=== PATIENT | female | born 1950 | race African-American/Black ===

== ENCOUNTER → 2023-05-09 13:38 | Outpatient (REF) | payer MEDICARE, SELFPAY | LOC: HWWDC 13:38 | PROVIDERS: ATTENDING PHYSICIAN Nurse Practitioner Adult Health; FAMILY PHYSICIAN Family Medicine | DX: Z12.31 Encounter for screening mammogram for malignant neoplasm of breast (principal) | CPT/HCPCS: 77063; 77067 ==

== ENCOUNTER → 2024-01-01 18:42 | Outpatient (REF) | payer MEDICARE, SELFPAY | LOC: MRI 18:42 | PROVIDERS: ATTENDING PHYSICIAN Nurse Practitioner Family; FAMILY PHYSICIAN Family Medicine | DX: R10.11 Right upper quadrant pain (principal) | CPT/HCPCS: 74183; A9575 ==

== ENCOUNTER 2024-01-18 16:19 | Observation (INO) | payer MEDICARE, SELFPAY ==
[2024-01-18 10:37] VITALS: BP 155/106
--- NOTE | 2024-01-18 10:37 | ED.GENMED ---
ED Provider Triage
<Ara You PA-C - Last Filed: 01/18/24 10:39>
-
Patient seen by provider in Triage?: Seen in Triage
Attestation: A medical screening examination has been initiated by a qualified medical provider. Based on the assessment performed at this time, it has been determined that an emergent medical condition may exist and the patient has been informed
that further medical evaluation and possible additional diagnostic testing may be needed.
HPI: 73yoF here with chest heaviness, SOB, and lightheadedness. Started while driving <1 hour ago.
GENERAL: Alert , in no apparent distress
EYE: No visual abnormalities.
NECK: Trachea midline
ENT: No visible abnormalities.
LUNGS: No acute respiratory distress
NEUROLOGICAL: Alert and oriented
SKIN: Skin intact. No visible changes.
MUSCULOSKELETAL: Moving extremities normally
PSYCH: Normal and appropriate interaction.
This is a medical evaluation conducted in person to initiate diagnostic evaluation and provide initial therapeutics. Please see further documentation by the treating clinician.
Cardiac labs, EKG, and CXR ordered.
History of Present Illness
<Ara You PA-C - Last Filed: 01/18/24 10:39>
General
Chief Complaint: Chest Pain
Time Seen by Provider: 01/18/24 12:43
<Ministerio Méndez MD - Last Filed: 01/18/24 15:38>
History of Present Illness
History of Present Illness:
Patient with an episode of chest pain while driving. Prolonged. Still has mild chest discomfort but improved. Radiate up to the left neck. Associated with near syncope
Past History
<Ara You PA-C - Last Filed: 01/18/24 10:39>
Past History
ED Past Medical History: Arrthythmia (SVT), HTN, Other (PE) and Other (Ulcers, Depression, anxiety, Gastritis)
ED Past Surgical History: Appendectomy, Cardiac (Cardiac ablation), Cholecystectomy, Tonsilectomy and Other (Green field filter, ovarian cyst removed)
Social History
Tobacco: Non-smoker
Alcohol: None
Drug: None
Personal:
Living: with family
Employment: Disabled
Family History
Family History: Hypertension; Negative CAD
Phy Exam
<Ministerio Méndez MD - Last Filed: 01/18/24 15:38>
Physical Exam
Physical Exam:
GENERAL: Alert and oriented in no apparent distress
EYE: Orbits normal.
NECK: Supple, no significant adenopathy.
ENT: Pharynx without erythema
CARDIAC: Regular rate and rhythm without any obvious murmurs.
LUNGS: Clear breath sounds,normal
ABDOMEN: Soft, without focal tenderness or distention
NEUROLOGICAL: Alert and oriented , grossly non-focal
SKIN: Warm and dry, no rash or lesion, no discoloration, skin intact.
MUSCULOSKELETAL: No edema,no deformity.Good color
PSYCH: Normal and appropriate interaction.
Scores
<Ministerio Méndez MD - Last Filed: 01/18/24 15:38>
Heart Score for Chest Pain Patients
STEMI patient?: No
History: Moderately Suspicious
ECG: Normal
Age: >/= 65 years
Risk Factors: 1 or 2 Risk Factors
Troponin: </= Normal Limit
Heart Score for Chest Pain Patients: 4
Heart Score Risk: 20.3% MACE over next 6 weeks
Course
<Ara You PA-C - Last Filed: 01/18/24 10:39>
Orders/Labs/Results
Orders:
Orders
01/18/24 10:22
EKG [Electrocardiogram (*1)] Urgent
Reason for Study: Chest Pain
01/18/24 10:23
EKG- Treatment ONCE
01/18/24 10:39
CR Chest - 2 Views Urgent
Comment:
Reason For Exam: SOB
01/18/24 10:52
Complete Blood Count/With Diff Urgent
Comprehensive Metabolic Panel Urgent
Glycohemoglobin (HgbA1c) Urgent
Troponin I Urgent
01/18/24 12:04
Add On- LAB Stat
Comments:: Please add A1C to AM labs. Thank you
Tests Added?: A1C
01/18/24 13:05
D-Dimer Urgent
Abnormal Lab Results
01/18/24
10:52
WBC 4.7 L 10^3/uL
(4.8-10.8)
MCH 32.0 H pg
(27.0-31.0)
MPV 10.7 H fL
(7.4-10.4)
Absolute Lymphs (auto) 1.1 L 10^3/uL
(1.2-3.4)
Carbon Dioxide 31 H mmol/L
(22-30)
Glucose 206 H mg/dl
(70-99)
Hemoglobin A1c 6.5 H %
(4.0-5.6)
01/18/24 10:52
01/18/24 10:52
Vital Signs
Initial and Last Documented VS:
Initial Vital Signs
Temp Pulse Resp BP Pulse Ox
98.2 F 80 18 155/106 100
01/18/24 10:37 01/18/24 10:37 01/18/24 10:37 01/18/24 10:37 01/18/24 10:37
Last Documented Vital Signs
Temp Pulse Resp BP Pulse Ox
98.2 F 64 9 177/82 94
01/18/24 10:37 01/18/24 13:00 01/18/24 13:00 01/18/24 12:58 01/18/24 13:00
<Ministerio Méndez MD - Last Filed: 01/18/24 15:38>
Orders/Labs/Results
Orders:
Orders
01/18/24 10:22
EKG [Electrocardiogram (*1)] Urgent
Reason for Study: Chest Pain
01/18/24 10:23
EKG- Treatment ONCE
01/18/24 10:39
CR Chest - 2 Views Urgent
Comment:
Reason For Exam: SOB
01/18/24 10:52
Complete Blood Count/With Diff Urgent
Comprehensive Metabolic Panel Urgent
Glycohemoglobin (HgbA1c) Urgent
Troponin I Urgent
01/18/24 12:04
Add On- LAB Stat
Comments:: Please add A1C to AM labs. Thank you
Tests Added?: A1C
01/18/24 13:05
D-Dimer Urgent
Abnormal Lab Results
01/18/24
10:52
WBC 4.7 L 10^3/uL
(4.8-10.8)
MCH 32.0 H pg
(27.0-31.0)
MPV 10.7 H fL
(7.4-10.4)
Absolute Lymphs (auto) 1.1 L 10^3/uL
(1.2-3.4)
Carbon Dioxide 31 H mmol/L
(22-30)
Glucose 206 H mg/dl
(70-99)
Hemoglobin A1c 6.5 H %
(4.0-5.6)
01/18/24 10:52
01/18/24 10:52
Vital Signs
Initial and Last Documented VS:
Initial Vital Signs
Temp Pulse Resp BP Pulse Ox
98.2 F 80 18 155/106 100
01/18/24 10:37 01/18/24 10:37 01/18/24 10:37 01/18/24 10:37 01/18/24 10:37
Last Documented Vital Signs
Temp Pulse Resp BP Pulse Ox
98.2 F 64 9 177/82 94
01/18/24 10:37 01/18/24 13:00 01/18/24 13:00 01/18/24 12:58 01/18/24 13:00
<Ministerio Méndez MD - Last Filed: 01/18/24 15:38>
MDM/Problems Addressed
Differential Diagnosis Includes:
Left-sided chest pressure rating to the neck. No precipitating event. Similar episode 2 weeks ago. Moderate risk factors. Associated with near syncope. Referred to cardiology who recommended admission
<Ministerio Méndez MD - Last Filed: 01/18/24 15:38>
*Radiology
Radiology exam reviewed: radiology read reviewed (Negative)
*Pulse Oximetry
Patient hypoxic: no
*EKG
Interpreted by ED Provider?: Yes
Interpretation: normal
Heart Rate: 78
Rate: normal
Rhythm: sinus
Hendrum: normal axis
Interval: normal interval
QRS Pattern: normal QRS
Ischemia: no ischemia
*Critical Care Note
Total Time (30-74mins, 75-104mins- exclusive of procedures): Not Applicable
<Ministerio Méndez MD - Last Filed: 01/18/24 15:38>
Update Note
Update Note:
Seen by cardiology who recommends admission
ED Attending Note
<Ara You PA-C - Last Filed: 01/18/24 10:39>
-
Portions of this chart may have been created with voice recognition software.� Occasional wrong word or��sound alike� substitutions may have occurred due to the inherent limitations of voice recognition software.
Discharge Plan
Departure
Patient Disposition: Admit
Date of Disposition: 01/18/24
Time of Disposition: 15:37
Presentation/result/management discussed w/ accepting /DO: glo
Discharge Problem:
Chest pain near syncope
Prescriptions:
No Action
sodium chloride 0.65 % Aerosol,[place]
2 spray INTRANASAL BIDPRN PRN (Reason: allergies) Qty: 0
Flintstones Complete Tablet,Chewable
2 tab PO DAILY Qty: 0
Patient Comments:
chewable multivitamin
hydralazine 25 mg Tablet
25 mg PO QID
clopidogrel [Plavix] 75 mg Tablet
75 mg PO DAILY@1100
alum-mag hydroxide-simeth 200-200-20 mg/5 mL Suspension
5 ml PO DAILYPRN PRN (Reason: gas pains)
rosuvastatin [Crestor] 5 mg Tablet
5 mg PO MOWEFR
carvedilol 6.25 MG tablet
12.5 mg PO BID
Referrals:
Chrystal Gagnon MD [Family Provider] -
Interventions
Interventions:
*Risk Screen - Suicide Last Done: 01/18/24 10:37
*General Assessment Last Done: 01/18/24 10:37
*Neglect/Abuse Screening Last Done: 01/18/24 10:37
ED- Fall Risk Assessment Last Done: 01/18/24 12:51
*ED COVID-19 Vaccine History Last Done: 01/18/24 12:51
ED- Cardiac Assessment Last Done: 01/18/24 12:51
Discharge Date and Time
Print Language: BRITISH
[2024-01-18 11:07] LABS: % Basophils 0.9 % (0-2); % Eosinophils 5.1 % (0-6); % Immature Granulocytes 0.2 % (0-0.5); % Monocytes 7.7 % (1.7-9.3); % Neutrophils 62.1 % (42.2-75.2); Absolute Eosinophils 0.2 10^3/uL (0-0.7); Absolute Lymphocytes 1.1 10^3/uL (1.2-3.4); Absolute Monocytes 0.4 10^3/uL (0.1-0.6); Absolute Neutrophils 2.9 10^3/uL (1.4-6.5); Hematocrit 40.3 % (37.0-47.0); Hemoglobin 13.9 g/dL (12.0-16.0); Mean Corp Hgb Conc. 34.5 g/dL (33.0-37.0); Mean Corpuscular Volume 92.9 fL (81.0-99.0); Mean Platelet Volume 10.7 fL (7.4-10.4); Nucleated Red Blood Cells % 0 %; Platelet Count 178 10^3/uL (130-400); Red Blood Cell Count 4.34 10^6/uL (4.20-5.40); Red Cell Dist. Width 12.5 % (11.5-14.5); White Blood Cell Count 4.7 10^3/uL (4.8-10.8)
[2024-01-18 11:22] LABS: ALT (SGPT) 22 U/L (0-35); AST (SGOT) 26 U/L (14-36); Albumin 4.6 g/dl (3.5-5.0); Alkaline Phosphatase 47 U/L (38-126); Blood Urea Nitrogen 16 mg/dl (7-17); Calcium 9.7 mg/dl (8.4-10.2); Carbon Dioxide 31 mmol/L (22-30); Chloride 98 mmol/L (98-107); Glucose 206 mg/dl (70-99); Potassium 3.7 mmol/L (3.5-5.1); Sodium 138 mmol/L (135-145); Total Bilirubin 0.8 mg/dl (0.2-1.3); eGFR > 60.00
[2024-01-18 11:30] LABS: Troponin I < 0.012 ng/ml
[2024-01-18 12:58] VITALS: BP 177/82
[2024-01-18 13:00] VITALS: BP 188/84
[2024-01-18 13:01] VITALS: BMI 29.8
[2024-01-18 13:12] LABS: Glycohemoglobin (HgbA1c) 6.5 % (4.0-5.6)
--- NOTE | 2024-01-18 13:14 | CON.CAR ---
Addendum entered and electronically signed by Rhett Aguillon MD 01/18/24 15:49:
I saw and examined the patient.
The CONSTRUCTION EQUIPMENT MECH[employer]IC's note was reviewed and I agree with the note.
73-year-old patient of Dr. Sheth with a history of SVT ablation 2003, labile hypertension, remote history of PE, IVC filter, diabetes hypercholesterolemia, anxiety/depression, multiple medication intolerances/allergies and fibromyalgia who presents
with chest pressure. Patient was in her usual state of health and randomly developed left sided chest pressure while seated and it was severe in intensity for about a minute and then lessened she had faint residual chest sensation so she came to
the ER. During the intense portion of her symptoms she felt lightheaded currently she has a faint residual chest sensation she also feels like the left side of her neck is sore like she slept the wrong way and has some soreness with palpation.
Patient states that she had some similar chest pressure which was not quite as intense about a week ago she was standing in her kitchen and she had the chest pressure and also felt a little lightheaded she was able to remain standing and the
symptoms. She belched and the symptoms seem to resolve. Duration was 1 minute. Between the episode she has felt fine she does her usual exercises with small weights at home and she walks in her development with no symptoms of chest discomfort or
shortness of breath she states with the first episode of chest pressure she belched. . Last stress echo 04/14/2022 without ischemia there was note made to the fact that she had back pain after having echo contrast and the recommendation was for her
not to receive echo contrast. Patient's also had previous chest CTs to rule out PE in 2019, 2020, 2021 and 2022. D-dimer today was negative. Troponin negative.Chest x-ray with no acute abnormality. ECG is without ischemic changes. Exact cause
of symptoms is unclear. Patient does have some risk factors for coronary artery disease would also consider noncardiac causes. Considering patient's risk factors continued symptoms as well as her level anxiety would admit for further observation
and proceed as follows
-Repeat troponin now and follow serial troponins
-Aspirin. Note patient states she has had aspirin in the past because she tends to have GI issues the decision was made to not take the aspirin long-term. We did discuss short-term use as we proceed with her evaluation
-If troponins remain unremarkable then would proceed with exercise treadmill nuclear perfusion stress test in a.m.
-Treatment for GERD. Limited due to reported intolerances to PPI and Pepcid. Defer to primary team. Note patient tolerates Mylanta. Unclear if she has been on Carafate before
-Echocardiogram
-Lightheadedness. She reported some symptoms of lightheadedness with her symptoms exact cause unclear. Prior history of SVT ablation no arrhythmias while on telemetry so far. Will continue to monitor on telemetry if patient continues to have
intermittent symptoms could consider additional outpatient cardiac monitoring
-Labile hypertension blood pressure is elevated in ER. Patient is also anxious which is may contribute. Would have patient take her usual medications and reassess blood pressure.
-Diabetes -recently diagnosed. Management as directed by primary team and PCP
Original Note:
Consultation
Consultation Request
Date/Time Consultation Requested: 01/18/24 1308
Date/Time Consultation Performed: 01/18/24 1320
Requesting Provider: Dr. Méndez
Performing Provider: Ana PUENTE for Dr. Aguillon
Reason for Consultation: chest discomfort, near syncope
Medical History
-
Chief Complaint: chest discomfort, near syncope
History of Present Illness:
73 y/o female with history of SVT s/p ablation 2003, labile hypertension, hx remote PE with IVC filter, DM2, dyslipidemia, anxiety/depression, fibromyalgia, and Grave's disease who is here for evaluation of chest discomfort with near syncope. It
started around 10 AM while she was driving and felt like a left-sided chest pressure. She thought she might pass out, but didn't. The most intense part lasted about 1 minute, but she continues to have mild symptoms even now of chest discomfort. She
also reports left-sided neck pain that feels more like a pinch. ER eval has been unrevealing.
Past Medical History
Past Medical History: Arrhythmias, HTN, Hypercholesterolemia, Hyperthyroidism (graves disease), NIDDM, Psychiatric (anxiety, depression) and Other (grave's disease , as above)
Social History
Tobacco: Non-Smoker
Family History
Family History: Other (mom had CHF)
Allergies / Home Medications
Allergy/AdvReac Type Severity Reaction Status Date / Time
amitriptyline Allergy rapid Verified 09/20/22 09:48
heart rate
amlodipine [From Norvasc] Allergy swelling Verified 09/20/22 09:48
hands/feet,
confusion
amlodipine besylate Allergy swelling Verified 09/20/22 09:48
[From Norvasc] of
hands&feet,
mental
confusion
atenolol Allergy depression, Verified 09/20/22 09:48
muscle
pain in
rib area
bupropion HCl Allergy rash, Verified 09/20/22 09:48
[From Wellbutrin] agitation
buspirone HCl [From BuSpar] Allergy Hives Verified 09/20/22 09:48
candesartan cilexetil Allergy weakness, Verified 09/20/22 09:48
[From Atacand] difficulty
swallowing,
sore throat
cefaclor [From Ceclor] Allergy Rash Verified 09/20/22 09:48
cefprozil [From Cefzil] Allergy itchy rash Verified 09/20/22 09:48
cefuroxime Allergy itchy rash Verified 09/20/22 09:48
cefuroxime axetil Allergy itchy rash Verified 09/20/22 09:48
[From Ceftin]
cephalexin Allergy itchy rash Verified 09/20/22 09:48
cephalexin monohydrate Allergy itchy rash Verified 09/20/22 09:48
[From Keflex]
Cephalosporins Allergy itchy rash Verified 09/20/22 09:48
chlorpromazine Allergy Unknown Verified 09/20/22 09:48
citalopram [From Celexa] Allergy gi upset, Verified 09/20/22 09:48
coughing,
spasms,
burning
chest
citalopram hydrobromide Allergy GI upset Verified 09/20/22 09:48
[From Celexa] (vomiting)
clarithromycin Allergy Hives Verified 09/20/22 09:48
clindamycin Allergy Hives Verified 09/20/22 09:48
clonazepam Allergy extreme Verified 09/20/22 09:48
jitters,
hyperactivity
clonidine Allergy severe Verified 09/20/22 09:48
musc pain
& weakness
diltiazem Allergy difficulty Verified 09/20/22 09:48
swallowing,
irregular
heartbeat
doxazosin [From Cardura] Allergy Patient is Verified 09/20/22 09:48
presently
taking
eplerenone [From INSPRA] Allergy severe Verified 09/20/22 09:48
pain under
left
shoulder
blade,
chest pain
erythromycin base Allergy severe Verified 09/20/22 09:48
stomach
cramps/diarrhea
escitalopram oxalate Allergy Vomiting Verified 09/20/22 09:48
[From Lexapro]
esomeprazole [From Nexium] Allergy flu like Verified 09/20/22 09:48
symptoms
esomeprazole magnesium Allergy fever, Verified 09/20/22 09:48
[From Nexium] flu-like
Sx, severe
abd+musc
pain,diarrhea
estrogens, conjugated Allergy Unknown Verified 09/20/22 09:48
famotidine [From Pepcid] Allergy Patient Verified 09/20/22 09:48
states has
taken now
without a
problem
Heparin Analogues Allergy 'TRUE Verified 09/20/22 09:48
ALLERGY'leathery-watery
blisters,itchy
rash,swelling
hydralazine Allergy PATIENT IS Verified 09/20/22 09:48
PRESENTLY
TAKING
THIS
MEDICINE
irbesartan [From Avapro] Allergy extreme Verified 09/20/22 09:48
muscle
pain &
spasms
lansoprazole Allergy Unknown Verified 09/20/22 09:48
levofloxacin Allergy Unknown Verified 09/20/22 09:48
lidocaine Allergy 'LONG TIME Verified 09/20/22 09:48
AGO'
lisinopril Allergy rash, sore Verified 09/20/22 09:48
throat,
cough,
weakness
methyldopa Allergy tingling, Verified 09/20/22 09:48
couldn't
swallow,
lateral
pain,
unable
togetbreath
mirtazapine Allergy fever,flu-like Verified 09/20/22 09:48
symptoms
nickel [Nickel] Allergy metal Verified 09/20/22 09:48
sensitivity,
itching,
loss of
pigment
nitrofurantoin Allergy Hives Verified 09/20/22 09:48
macrocrystalline
[From Macrobid]
nortriptyline [Nortriptyline] Allergy rapid Verified 09/20/22 09:48
heart rate
olanzapine Allergy Unknown Verified 09/20/22 09:48
olmesartan medoxomil Allergy hives, rash Verified 09/20/22 09:48
[From Benicar]
pantoprazole sodium Allergy fever, Verified 09/20/22 09:48
[From Protonix] flu-like
Sx, severe
abd+musc
pain,diarrhea
Penicillins Allergy 'SEVERE,' Verified 09/20/22 09:48
red itchy
rash,
difficulty
swallowing
perflutren [From Definity] Allergy Unknown Verified 09/20/22 09:48
prednisone Allergy extreme Verified 09/20/22 09:48
nervousness
& anxiety
propoxyphene HCl Allergy difficulty Verified 09/20/22 09:48
[From Darvon] swallowing
Quinolones Allergy Unknown Verified 09/20/22 09:48
sertraline Allergy GI upset, Verified 09/20/22 09:48
vomiting
sertraline HCl [From Zoloft] Allergy Hives Verified 09/20/22 09:48
spironolactone Allergy muscle Verified 09/20/22 09:48
pain +
spasms
(rib +
back area)
Sulfa (Sulfonamide Allergy 'SEVERE,' Verified 09/20/22 09:48
Antibiotics) red itchy
rash,
difficulty
swallowing
sulfamethoxazole Allergy 'SEVERE,' Verified 09/20/22 09:48
[From Bactrim] red itchy
rash,
difficulty
swallowing
sulfasalazine Allergy 'SEVERE,' Verified 09/20/22 09:48
red itchy
rash,
difficulty
swallowing
sulfisoxazole Allergy itching, Verified 09/20/22 09:48
[From Gantrisin] weakness,
depression
sulfisoxazole acetyl Allergy itching, Verified 09/20/22 09:48
[From Gantrisin] weakness,
depression
trazodone Allergy chest pain Verified 09/20/22 09:48
trimethoprim [From Bactrim] Allergy 'SEVERE,' Verified 09/20/22 09:48
red itchy
rash,
difficulty
swallowing
valsartan [From Diovan] Allergy weakness, Verified 09/20/22 09:48
severe
headache
w/
dizziness
venlafaxine HCl Allergy itching/pal Verified 09/20/22 09:48
[From Effexor] patations
verapamil [Verapamil] Allergy Shortness Verified 09/20/22 09:48
of Breath
warfarin sodium Allergy 'TRUE Verified 09/20/22 09:48
[From Coumadin] ALLERGY'leathery-watery
blisters,itchy
rash,swelling
zolpidem tartrate Allergy depression Verified 09/20/22 09:48
[From Ambien] w/ vivid
dreams &
suicidal
thoughts
�Medication �Instructions �Recorded �Confirmed �Type
pediatric multivitamin no.76 2 tab PO DAILY Supplement ##0 12/17/20 09/20/22 History
(Flintstones Complete chewable
tablet)
sodium chloride 0.65 % nasal spray 2 spray intranasal BIDPRN PRN 12/17/20 09/20/22 History
aerosol allergies ##0
aluminum-mag hydroxide-simethicone 5 ml PO DAILYPRN PRN gas pains 09/20/22 09/20/22 History
200 mg-200 mg-20 mg/5 mL oral susp
carvedilol 6.25 mg tablet 12.5 mg PO BID Blood Pressure 09/20/22 09/20/22 History
clopidogrel 75 mg tablet (Plavix) 75 mg PO DAILY@1100 Blood Clot 09/20/22 09/20/22 History
Prevention/Tx
hydralazine 25 mg tablet 25 mg PO QID Blood Pressure 09/20/22 09/20/22 History
rosuvastatin 5 mg tablet (Crestor) 5 mg PO MOWEFR High Cholesterol 09/20/22 09/20/22 History
Review of Systems
-
History Source: Patient
All other systems: Negative unless noted
Cardiac: Chest Pain
Neurological: Dizzy
Physical Exam
Vital Signs
Temp Pulse Resp BP Pulse Ox
98.2 F 64 9 177/82 94
01/18/24 10:37 01/18/24 13:00 01/18/24 13:00 01/18/24 12:58 01/18/24 13:00
Lab Results
01/18/24 10:52
01/18/24 10:52
Troponin I < 0.012 ng/ml 01/18/24 10:52
Physical Exam
General: Well Developed, Well Nourished and No Apparent Distress
HEENT: Normocephalic and Anicteric
Respiratory: Clear and Non Labored Respirations
Cardiac: Regular Rhythm
Skin: Warm and Dry
Neuro: AO x 3
Psych: Calm
Impression / Plan
-
Chest discomfort, near syncope:
-etiology unclear
-first trop and EKG are normal- continue to trend
-can have exercise nuclear stress test, echo
-follow telemetry
-unclear if neck pain is related- w/u per primary team if indicated
DM2:
-recent diagnosis
-she is working on lifestyle modifications
Labile HTN:
-follows on this with nephrology
-continue coreg and hydralazine and monitor
SVT:
-stable s/p ablation
Data Reviewed
-
EKG: Tracing Personally Visualized and interpreted (NSR 78, LA enlargement)
Medical Tests (Nuc Med, Echo etc): Report Reviewed by me (stress echo 04/14/22: low risk at 7 METS)
Labs: Labs Reviewed by me
[2024-01-18 13:29] LABS: D-Dimer 0.34 ug/mlFEU (0.00-0.50)
[2024-01-18] MEDS: ASPIRIN 325 MG PO (16:02)
--- NOTE | 2024-01-18 16:09 | HPS.HSE ---
Family Physician
-
Family Physician: Chrsytal Gagnon
Chief Complaint
-
chest pressure
History of Present Illness
73-year-old female who is presenting from home with complaints of chest pain. Patient says she was driving to her diabetes education class when during driving she developed left-sided chest pain/pressure. Said the pressure was a scale of 1-10 was
approximately 10. Also complained of mild lightheadedness/dizziness. Also states of left neck pain. Patient is the pain continued to worsen. Patient felt lightheaded but did not have episode of loss of consciousness. Patient was contemplating
to get admitted to hospital or not. Patient finally decided come into the ER. Patient history of prior episode of chest pressure. States she has history of whitecoat hypertension and blood pressure usually elevated during hospitalization. States
she had recent follow-up with her primary doctor for blood pressure was 130/64. Patient denies any lower extremity edema. Denies any orthopnea or PND. Does states of left-sided substernal chest discomfort. Radiation to her neck at times. States
she was evaluated for her cervical pain and has undergone MRI at [facility] where she was found to have spinal stenosis with radiculopathy/neuropathy. States she also underwent outpatient EMG study for bilateral upper extremity was found to
be normal.
Medical History
Past Medical History
Past Medical History: Reports Other
Additional Past Medical History:
Primary HTN
Whitecoat syndrome without diagnosis of hypertension
Anxiety
questionable PE s/p IVC filter 2003,
SVT s/p ablation
diabetes mellitus
Pancreatic cyst
Past Surgical History: Reports Appendectomy, Cholecystectomy, Gynocological (ovarian cyst removal ), Tonsilectomy and Other (Left forearm ganglion cyst removal, IVC filter placement per pt)
Social History
Tobacco: Non-smoker
Alcohol: None
Living: With Family
Family History
Family History: Not pertinent
Allergies / Home Medications
Allergies reflects when Allergies were last updated in [facility].
Home Medications with original date entered in [facility]
Allergy/Medication List:
Allergies
Allergy/AdvReac Type Severity Reaction Status Date / Time
amitriptyline Allergy rapid Verified 09/20/22 09:48
heart rate
amlodipine [From Norvasc] Allergy swelling Verified 09/20/22 09:48
hands/feet,
confusion
amlodipine besylate Allergy swelling Verified 09/20/22 09:48
[From Norvasc] of
hands&feet,
mental
confusion
atenolol Allergy depression, Verified 09/20/22 09:48
muscle
pain in
rib area
bupropion HCl Allergy rash, Verified 09/20/22 09:48
[From Wellbutrin] agitation
buspirone HCl [From BuSpar] Allergy Hives Verified 09/20/22 09:48
candesartan cilexetil Allergy weakness, Verified 09/20/22 09:48
[From Atacand] difficulty
swallowing,
sore throat
cefaclor [From Ceclor] Allergy Rash Verified 09/20/22 09:48
cefprozil [From Cefzil] Allergy itchy rash Verified 09/20/22 09:48
cefuroxime Allergy itchy rash Verified 09/20/22 09:48
cefuroxime axetil Allergy itchy rash Verified 09/20/22 09:48
[From Ceftin]
cephalexin Allergy itchy rash Verified 09/20/22 09:48
cephalexin monohydrate Allergy itchy rash Verified 09/20/22 09:48
[From Keflex]
Cephalosporins Allergy itchy rash Verified 09/20/22 09:48
chlorpromazine Allergy Unknown Verified 09/20/22 09:48
citalopram [From Celexa] Allergy gi upset, Verified 09/20/22 09:48
coughing,
spasms,
burning
chest
citalopram hydrobromide Allergy GI upset Verified 09/20/22 09:48
[From Celexa] (vomiting)
clarithromycin Allergy Hives Verified 09/20/22 09:48
clindamycin Allergy Hives Verified 09/20/22 09:48
clonazepam Allergy extreme Verified 09/20/22 09:48
jitters,
hyperactivity
clonidine Allergy severe Verified 09/20/22 09:48
musc pain
& weakness
diltiazem Allergy difficulty Verified 09/20/22 09:48
swallowing,
irregular
heartbeat
doxazosin [From Cardura] Allergy Patient is Verified 09/20/22 09:48
presently
taking
eplerenone [From INSPRA] Allergy severe Verified 09/20/22 09:48
pain under
left
shoulder
blade,
chest pain
erythromycin base Allergy severe Verified 09/20/22 09:48
stomach
cramps/diarrhea
escitalopram oxalate Allergy Vomiting Verified 09/20/22 09:48
[From Lexapro]
esomeprazole [From Nexium] Allergy flu like Verified 09/20/22 09:48
symptoms
esomeprazole magnesium Allergy fever, Verified 09/20/22 09:48
[From Nexium] flu-like
Sx, severe
abd+musc
pain,diarrhea
estrogens, conjugated Allergy Unknown Verified 09/20/22 09:48
famotidine [From Pepcid] Allergy Patient Verified 09/20/22 09:48
states has
taken now
without a
problem
Heparin Analogues Allergy 'TRUE Verified 09/20/22 09:48
ALLERGY'leathery-watery
blisters,itchy
rash,swelling
hydralazine Allergy PATIENT IS Verified 09/20/22 09:48
PRESENTLY
TAKING
THIS
MEDICINE
irbesartan [From Avapro] Allergy extreme Verified 09/20/22 09:48
muscle
pain &
spasms
lansoprazole Allergy Unknown Verified 09/20/22 09:48
levofloxacin Allergy Unknown Verified 09/20/22 09:48
lidocaine Allergy 'LONG TIME Verified 09/20/22 09:48
AGO'
lisinopril Allergy rash, sore Verified 09/20/22 09:48
throat,
cough,
weakness
methyldopa Allergy tingling, Verified 09/20/22 09:48
couldn't
swallow,
lateral
pain,
unable
togetbreath
mirtazapine Allergy fever,flu-like Verified 09/20/22 09:48
symptoms
nickel [Nickel] Allergy metal Verified 09/20/22 09:48
sensitivity,
itching,
loss of
pigment
nitrofurantoin Allergy Hives Verified 09/20/22 09:48
macrocrystalline
[From Macrobid]
nortriptyline [Nortriptyline] Allergy rapid Verified 09/20/22 09:48
heart rate
olanzapine Allergy Unknown Verified 09/20/22 09:48
olmesartan medoxomil Allergy hives, rash Verified 09/20/22 09:48
[From Benicar]
pantoprazole sodium Allergy fever, Verified 09/20/22 09:48
[From Protonix] flu-like
Sx, severe
abd+musc
pain,diarrhea
Penicillins Allergy 'SEVERE,' Verified 09/20/22 09:48
red itchy
rash,
difficulty
swallowing
perflutren [From Definity] Allergy Unknown Verified 09/20/22 09:48
prednisone Allergy extreme Verified 09/20/22 09:48
nervousness
& anxiety
propoxyphene HCl Allergy difficulty Verified 09/20/22 09:48
[From Darvon] swallowing
Quinolones Allergy Unknown Verified 09/20/22 09:48
sertraline Allergy GI upset, Verified 09/20/22 09:48
vomiting
sertraline HCl [From Zoloft] Allergy Hives Verified 09/20/22 09:48
spironolactone Allergy muscle Verified 09/20/22 09:48
pain +
spasms
(rib +
back area)
Sulfa (Sulfonamide Allergy 'SEVERE,' Verified 09/20/22 09:48
Antibiotics) red itchy
rash,
difficulty
swallowing
sulfamethoxazole Allergy 'SEVERE,' Verified 09/20/22 09:48
[From Bactrim] red itchy
rash,
difficulty
swallowing
sulfasalazine Allergy 'SEVERE,' Verified 09/20/22 09:48
red itchy
rash,
difficulty
swallowing
sulfisoxazole Allergy itching, Verified 09/20/22 09:48
[From Gantrisin] weakness,
depression
sulfisoxazole acetyl Allergy itching, Verified 09/20/22 09:48
[From Gantrisin] weakness,
depression
trazodone Allergy chest pain Verified 09/20/22 09:48
trimethoprim [From Bactrim] Allergy 'SEVERE,' Verified 09/20/22 09:48
red itchy
rash,
difficulty
swallowing
valsartan [From Diovan] Allergy weakness, Verified 09/20/22 09:48
severe
headache
w/
dizziness
venlafaxine HCl Allergy itching/pal Verified 09/20/22 09:48
[From Effexor] patations
verapamil [Verapamil] Allergy Shortness Verified 09/20/22 09:48
of Breath
warfarin sodium Allergy 'TRUE Verified 09/20/22 09:48
[From Coumadin] ALLERGY'leathery-watery
blisters,itchy
rash,swelling
zolpidem tartrate Allergy depression Verified 09/20/22 09:48
[From Ambien] w/ vivid
dreams &
suicidal
thoughts
Home Medications
pediatric multivitamin no.76 (Flintstones Complete chewable tablet) 2 tab PO DAILY Supplement ##0 12/17/20
carvedilol 6.25 mg tablet 6.25 mg PO BID Blood Pressure 09/20/22
aluminum-mag hydroxide-simethicone 200 mg-200 mg-20 mg/5 mL oral susp 5 ml PO DAILYPRN PRN heartburn 01/18/24
carboxymethylcellulose sodium 0.25 % eye drops in a dropperette (TheraTears) 1 drp BOTH EYES BID 01/18/24
hydrochlorothiazide 12.5 mg tablet 12.5 mg PO DAILY 01/18/24
lorazepam 0.5 mg tablet 0.5 mg PO DAILYPRN PRN anxiety/claustrophobia 01/18/24
sodium chloride 0.9 % nasal spray aerosol 2 spray intranasal DAILYPRN PRN conjestion 01/18/24
Review of Systems
-
History Source: Patient
A 12 point ROS was completed and negative except as noted: Yes
Physical Exam
Vital Signs
Vital Signs
Temp Pulse Resp BP Pulse Ox
98.2 F 79 18 188/84 100
01/18/24 10:37 01/18/24 15:30 01/18/24 15:30 01/18/24 13:00 01/18/24 15:30
Physical Exam
General: Well Developed, Well Nourished and No Apparent Distress
HEENT: NormoCephalic, Moist mucous membranes and Atraumatic
Respiratory: Clear and Other (left chest wall indentation due to lipoma resection)
Cardiac: S1/S2 and Regular Rhythm; No Murmur or Rub
Breast: Deferred by me
GI: Soft, Non Tender, Non Distended and Normal Bowel Sounds; No Organomegaly
Rectal: Deferred by Provider
Genito-urinary: Deferred by me
Musculoskeletal: No Clubbing, No Cyanosis and No Edema
Skin: No Rash
Neuro: Awake, Alert, Oriented, AO x 3, No Motor Deficits and Nonfocal/grossly intact
Psych: Calm
Laboratory Results
-
01/18/24 10:52
01/18/24 10:52
Laboratory Results
Total Bilirubin 0.8 mg/dl (0.2-1.3) 01/18/24 10:52
AST 26 U/L (14-36) 01/18/24 10:52
ALT 22 U/L (0-35) 01/18/24 10:52
Alkaline Phosphatase 47 U/L (38-126) 01/18/24 10:52
Troponin I Cancelled 01/18/24 23:00
Impression/Plan
-
#Chest pressure rule out ACS
#Pre-syncope
First set troponin negative
Continue to trend x 2
Echocardiogram
Plan for stress test in the morning
Check cholesterol and A1c
Patient allergic/sensitivity to multiple medication could create hindrance for aggressive management
Try for strict blood pressure control however patient with whitecoat syndrome and allergic to multiple medications
Continue home regimen of carvedilol & HCTZ
Not tachycardic. D-dimer within normal limits. Not hypoxic.
Status post full dose aspirin. Continue 81 mg aspirin daily
Check orthostatics. Gentle IVF.
Cardiology following
#Chronic neck pain
If no improvement can consider imaging with CAT scan of cervical spine
Patient states hx of cervical radiculopathy
Heat/ice pack
#Primary hypertension
Whitecoat syndrome
Continue carvedilol and HCTZ
May need strict blood pressure control
Carvedilol dose accordingly with no dose in the morning prior to stress test
Follows with nephrology
#Diabetes mellitus type 2
A1c is 6.5
Insulin sliding scale and Accu-Cheks
Confirm if on any medication.
Depression/anxiety
Continue with Ativan
Pancreatic cyst
questionable PE s/p IVC filter 2003,
DVT prophylaxis SCDs for now/allergic to heparin
I spent a total of 78 minutes with the patient or on the floor. More than 50% of this time involved counseling and coordination of care.
[2024-01-18 16:37] LABS: Troponin I < 0.012 ng/ml
[2024-01-18 19:02] VITALS: BP 163/88
[2024-01-18] MEDS: NSS 500 IV (21:09)
[2024-01-18] MEDS: COREG 6.25 MG PO (21:10)
[2024-01-18 22:58] VITALS: BP 183/104; BMI 28.8
--- NOTE | 2024-01-18 23:00 | PTCARENOTE ---
Pt arrived to unit from ED and ambulated independently from stretcher to bed. Pt is AAOx3, reports a mild headache but no chest pain at this time. BP on admission 183/104; pt reports feeling very anxious. Pt provided with a warm blanket and a
relaxing video; will recheck BP.
[2024-01-18 23:09] LABS: Glucose - Point of Care 182 mg/dl (70-99)
[2024-01-19 00:47] LABS: Troponin I < 0.012 ng/ml
[2024-01-19 03:31] VITALS: BP 180/100
--- NOTE | 2024-01-19 04:30 | PTCARENOTE ---
Aneesh Cook notified that pt's BP has been elevated throughout shift and latest BP at 0330 was 180/100, HR 66, pt asymptomatic. No further orders at this time.
[2024-01-19 05:46] LABS: Glucose - Point of Care 142 mg/dl (70-99)
[2024-01-19] MEDS: NOVOLOG FLEXPEN-LOW RESISTANCE SC (05:47)
[2024-01-19 06:00] VITALS: BMI 28.3
[2024-01-19 07:06] VITALS: BP 155/79
[2024-01-19 08:33] VITALS: BP 149/86; BP 155/79; BP 157/80; PULSE 64; PULSE 65; PULSE 75
[2024-01-19 08:38] LABS: INR 1.11; PT 14.1 Sec (11.4-14.6)
[2024-01-19 08:56] LABS: Troponin I < 0.012 ng/ml
[2024-01-19 09:57] LABS: Blood Urea Nitrogen 12 mg/dl (7-17); Calcium 9.4 mg/dl (8.4-10.2); Carbon Dioxide 28 mmol/L (22-30); Chloride 103 mmol/L (98-107); Estimated Creatinine Clearance 74 ml/min; Glucose 142 mg/dl (70-99); HDL Cholesterol 61 mg/dl; LDL Cholesterol, Calculated 119 mg/dl; Potassium 4.2 mmol/L (3.5-5.1); Sodium 143 mmol/L (135-145); Total Cholesterol 202 mg/dl (50-199); Triglyceride 111 mg/dl (10-149); Very Low Density Lipoprotein 22 mg/dl (0-30); eGFR > 60.00
[2024-01-19] MEDS: LEXISCAN 0.4 MG IV (09:57)
[2024-01-19] MEDS: AMINOPHYLLINE 75 MG IV (10:15)
[2024-01-19 11:16] VITALS: BP 181/82
--- NOTE | 2024-01-19 11:24 | W.PN.CD ---
Today's Communication / Plan
-
Await results of ETT MIBI if unremarkable then patient will be stable for discharge from a cardiology perspective.
Long-term cardiology follow-up will be in our office with Dr. Sheth
Impression / Plan
-
Chest discomfort,
-etiology unclear
-Chest pain-free overnight. Negative troponins.
-Echocardiogram with normal left ventricular function
-Await results of ETT MIBI
.
Lightheadedness. No recurrent episodes.
-Echo with normal ventricular function 01/19/2024
-No significant arrhythmias on telemetry
-If continued symptoms as outpatient could consider a cardiac event monitor
DM2:
-recent diagnosis
-she is working on lifestyle modifications
Labile HTN:
-follows on this with nephrology
-continue coreg and hydralazine and monitor
SVT:
-stable s/p ablation
Physical Exam
Vital Signs/Labs
Vital Signs
Temp Pulse Resp BP Pulse Ox
97.7 F 65 20 155/79 99
01/19/24 07:06 01/19/24 07:06 01/19/24 07:06 01/19/24 07:06 01/19/24 07:06
01/18/24 01/19/24 01/20/24
06:59 06:59 06:59
Actual Weight 79.577 kg
01/18/24 10:52
01/19/24 07:50
PT 14.1 Sec (11.4-14.6) 01/19/24 07:50
INR 1.11 01/19/24 07:50
APTT 32.0 Sec (23.4-35.0) 01/19/24 07:50
Triglycerides 111 mg/dl (10-149) 01/19/24 07:50
LDL Cholesterol, Calc 119 mg/dl 01/19/24 07:50
VLDL Cholesterol, Calc 22 mg/dl (0-30) 01/19/24 07:50
HDL Cholesterol 61 mg/dl 01/19/24 07:50
LAB Results
01/18/24 01/18/24 01/18/24
10:52 16:04 17:00
Troponin I < 0.012 < 0.012 Cancelled
01/18/24 01/18/24 01/18/24
22:00 23:00 23:15
Troponin I Cancelled Cancelled Cancelled
01/18/24 01/19/24
23:50 07:50
Troponin I < 0.012 < 0.012
Physical Exam
Constitutional: No acute distress
Cardiovascular: Rhythm & rate is regular
Respiratory: Respiratory effort normal
GI: Soft
Neuro/Psych: Alert
Data Reviewed
-
Date of Service: January 19, 2024
Medical Decision Making: Reviewed Test Results
Echo: Report Reviewed by me
Medical Tests (PFT, Pathology etc): Report Reviewed by me
Labs: Labs Reviewed by me
[2024-01-19] MEDS: ATIVAN 0.5 MG PO (12:04)
[2024-01-19] MEDS: ZOO CHEWS 2 TABLET PO (12:04)
[2024-01-19] MEDS: LOW STRENGTH ASPIRIN 81 MG PO (12:04)
[2024-01-19] MEDS: ORETIC 12.5 MG PO (12:04)
[2024-01-19 12:07] LABS: Glucose - Point of Care 207 mg/dl (70-99)
[2024-01-19] MEDS: NOVOLOG FLEXPEN-LOW RESISTANCE 2 UNITS SC (12:08)
--- NOTE | 2024-01-19 12:44 | W.PN.UPDATE ---
Update Note
Progress Note Update
lexiscan nuclear stress. No ischemia - full report to follow
--- NOTE | 2024-01-19 13:13 | W.PN.UPDATE ---
Update Note
Progress Note Update
patients BP high today. Coreg held and on discussion with her she is actually taking Coreg 12.5BID. Will resume outpatient dosing and follow up with Dr Sheth and BP
[2024-01-19] MEDS: COREG 12.5 MG PO (13:16)
--- NOTE | 2024-01-19 13:35 | W.PN.HOSP.TC ---
Today's Communication/Plan
-
dc home
hospital monitor
Assessment / Plan
Assessment / Plan
#Chest pressure
#Pre-syncope
Troponin negative x 4
Echocardiogram noted
Stress test negative for ischemia
Check cholesterol and A1c
Patient allergic/sensitivity to multiple medication could create hindrance for aggressive management
Try for strict blood pressure control however patient with whitecoat syndrome and allergic to multiple medications
Continue home regimen of carvedilol taking 12.5mg BID and HCTZ
Not tachycardic. D-dimer within normal limits. Not hypoxic.
Status post full dose aspirin.Stress test negative and asa can be stopped per cardiology.
s/p IVF
Cards to place hospital monitor/will be mailed in.
Cardiology following
#Chronic neck pain
Patient states hx of cervical radiculopathy
Heat/ice pack
#Primary hypertension
Whitecoat syndrome
elevated but initial home med recs stated of 6.125mg BID but pt taking 12.5mg BID -should improve. coreg 12.5mg dose given now as pt post stress test. t
Follows with nephrology -recs to make OP appt
#Diabetes mellitus type 2
A1c is 6.5
Insulin sliding scale and Accu-Cheks
Depression/anxiety
Continue with Ativan
Pancreatic cyst
questionable PE s/p IVC filter 2003,
DVT prophylaxis SCDs for now/allergic to heparin
More than 30 minutes spent in discharge including
Final examination of the patient
Summarizing hospital stay
Instructions for continuing care to all relevant caregivers
Preparation of discharge records, prescriptions, and referral forms
Total time spent (in minutes): 53
Anticipated Discharge: Today
Subjective/Interval History
-
Date of Service: January 19, 2024
feeling tired
seen post stress test
Objective Data
-
Labs:
Laboratory Results
10/11/24
07:50
PT 14.1
INR 1.11
APTT 32.0
Sodium 143
Potassium 4.2
Chloride 103
Carbon Dioxide 28
BUN 12
Creatinine 0.7
Glucose 142 H
Calcium 9.4
Vital Signs:
Vital Signs
Temp Pulse Resp BP Pulse Ox
98.3 F 68 20 181/82 98
01/19/24 11:16 01/19/24 11:16 01/19/24 11:16 01/19/24 11:16 01/19/24 11:16
I&O
01/18/24 01/19/24 01/20/24
06:59 06:59 06:59
Intake Total 240 / 240
Balance 240 / 240
Physical Exam
-
General: Well Developed, Well Nourished, No Apparent Distress, Comfortable and Conversant; Negative Respiratory Distress
HEENT: Normocephalic, Atraumatic, Nose Appears Normal and Ears Appear Normal; Negative Oxygen
Respiratory: Clear to Auscultation and Non Labored Respirations; Negative Accessory Resp Muscle Use
Cardiac: Regular Rhythm and S1/S2
GI: Soft, Nontender, Nondistended and Normal Bowel Sounds
Skin: Warm and Dry
Neuro: Awake, Alert, Oriented and Other (chronic L sided weakness (face, arm, leg)); Negative Slurred Speech
Psych: Calm and Intact Judgement/Insight
--- NOTE | 2024-01-19 13:44 | W.DCSUMMARY ---
Discharge Summary
Discharge Data
Date of Admission: 01/18/24
Date of Discharge: 01/19/24
-
Pending Results: No
Hospital Course
73 female past medical history of chronic neck pain, hypertension, diabetes mellitus new diagnosis (plan for lifestyle modification), depression, anxiety, pancreatic cyst is presenting with complaining of chest pressure and light headedness while
en-route to diabetic education teaching. Patient was driving when she felt left-sided chest pressure and mild lightheaded. Patient decided come into the ER. Patient was eval by cardiology. Troponin were checked and was found to be negative x 4.
Echo was done which showed EF of 65 to 70%. Mild to moderate concentric LVH. No regional wall motion abnormalities were seen. Normal left ventricular size and function. No significant valvular disease. Patient underwent nuclear stress test and
was found to be negative for ischemia. Patient also states of whitecoat syndrome and dose of blood pressure is high in hospital and sometimes in doctor offices. Patient carvedilol dose was adjusted as home med rec showed 6.25 to 12.5 mg twice
daily which patient was taking at home. Patient will also receive research quality assurance specialist per cardiology and will be monitored for any arrhythmias. Patient was recommended follow-up with her primary international sales manager for further blood pressure management.
Discharge Plan
-
Patient Disposition: Home (Routine Discharge)
Discharge Diagnosis/Procedures: Chest pressure
Pre-syncope
Condition: Fair
Diet: 2 Gram Sodium and Diabetic, Carb Controlled
Activity: With assistance and As tolerated
Others Tests: A heart monitor has been ordered for you. This is being arranged by Dr. Sheth's office.
Referrals:
Chrystal Gagnon MD [Family Provider] - in less than 1 week
Prescriptions:
Continued
Flintstones Complete Tablet,Chewable
1 tab PO DAILY Qty: 0
Patient Comments:
chewable multivitamin
carvedilol 6.25 MG tablet
12.5 mg PO BID
lorazepam 0.5 mg Tablet
0.5 mg PO DAILYPRN PRN (Reason: anxiety/claustrophobia)
alum-mag hydroxide-simeth 200-200-20 mg/5 mL Suspension
5 ml PO DAILYPRN PRN (Reason: heartburn)
TheraTears 0.25 % Dropperette
1 drp BOTH EYES BID
sodium chloride 0.9 % Aerosol,[place]
2 spray INTRANASAL DAILYPRN PRN (Reason: conjestion)
hydrochlorothiazide 12.5 mg Tablet
12.5 mg PO DAILY
Discharge Orders:
Discharge Patient (As Directed); Ordered 01/19/24
Ordered By: Hema Solorio
Discharge Date and Time
Print Language: KENYAN
[2024-01-19 14:08] VITALS: BMI 28.3
--- NOTE | 2024-01-19 14:24 | CM ---
Addendum entered by Dawna Mg 01/19/24 14:31:
CASTRO was reviewed, pt provided copy. Copy was placed into chart
Original Note:
Pt seen at bedside. Pt lives w/ spouse in a 2 story townhouse w/ 1 step to enter.
Prev. independent, no DME.
Denies SNF hx. OP rehab for shoulder in the past
Had PT/VN in the past, doesn't remember agency
Address, insurance and contacts confirmed
Pharmacy: [facility]
PCP: Chrystal Gagnon
Pt states she will drive herself home @ d/c. Pt stated nurse and hospitalist made aware and supports this.
Plan: Home w/ no needs
[2024-01-19 15:55] VITALS: BP 137/71
[2024-01-19 17:10] LABS: Glucose - Point of Care 112 mg/dl (70-99)
== END 2024-01-19 17:48 | disposition home or self-care (01) ==
LOC: 4 WEST ACU 16:19
PROVIDERS: Nurse Practitioner; Student in an Organized Health Care Education/Training Program; ADMITTING PHYSICIAN Hospitalist; CONSULT PHYSICIAN Internal Medicine Cardiovascular Disease; EMERGENCY PHYSICIAN Emergency Medicine; FAMILY PHYSICIAN Family Medicine
DX: R07.89 Other chest pain (principal); R06.02 Shortness of breath; R42 Dizziness and giddiness; R55 Syncope and collapse; I10 Essential (primary) hypertension; M54.2 Cervicalgia; G89.29 Other chronic pain; M79.7 Fibromyalgia; F32.A Depression, unspecified; F41.9 Anxiety disorder, unspecified; E11.9 Type 2 diabetes mellitus without complications; K86.2 Cyst of pancreas; R03.0 Elevated blood-pressure reading, without diagnosis of hypertension; E05.00 Thyrotoxicosis with diffuse goiter without thyrotoxic crisis or storm; E78.00 Pure hypercholesterolemia, unspecified; I70.0 Atherosclerosis of aorta; Z86.79 Personal history of other diseases of the circulatory system; Z95.828 Presence of other vascular implants and grafts; Z88.1 Allergy status to other antibiotic agents; Z88.3 Allergy status to other anti-infective agents; Z88.0 Allergy status to penicillin; Z88.2 Allergy status to sulfonamides; Z88.8 Allergy status to other drugs, medicaments and biological substances; Z91.048 Other nonmedicinal substance allergy status; Z87.19 Personal history of other diseases of the digestive system; Z90.49 Acquired absence of other specified parts of digestive tract; Z82.49 Family history of ischemic heart disease and other diseases of the circulatory system; Z79.02 Long term (current) use of antithrombotics/antiplatelets
CPT/HCPCS: 71046; 78452; 80048; 80053; 80061; 82962; 83036; 84484; 85025; 85379; 85610; 85730; 93005; 93017; 93306; 99285; A9500; G0378; J2785

== ENCOUNTER → 2024-01-22 18:00 | Outpatient (REF) | payer MEDICARE, SELFPAY ==
--- NOTE | 2024-01-19 15:54 | PN.DIAED02 ---
Referral
DSME Class Series Code: [id number]
Referred For: Diabetes Self-Management Training, Medical Nutrition Therapy, Self-Blood Glucose Monitoring, Long-Term Complication Instruction, Accute Complication Instruction, Disease Management
PHI Release Authorization Form Signed: No
Patient Problems:
Current Active Problems
Problem Status Onset
Type 2 diabetes mellitus without complications ~01/18/24
Demographic
(1) Type 2 diabetes mellitus without complications
Status: Acute Onset Date: ~01/18/24
Qualifiers:
Diabetes mellitus terminal makeup operator insulin use: without skilled nursing use Qualified Code(s): E11.9 - Type 2 diabetes mellitus without complications
Code(s): E11.9 - Type 2 diabetes mellitus without complications
Patient's primary language-: Frisian
Education: Some college
Occupation: Professional
Hours Worked/Week: > 40
Shift: Day
- Social
Primary Support Person: Self
Primary Care Takers: Self
Living Arrangements: Self & spouse
- Learning Methods
Preferred Method: Reading, Lecture/audio, Hands-on demonstration, Video, Group discussion
Barriers to Learning: None
Glycemic Control
- Blood Glucose Monitoring Assessment
Blood glucose monitoring at home: No
Monitor Brands: Other (CONTOUR)
Frequency: 1x per day
Time: fasting
Patient uses Alternate Site Testing: No
Patient instructed on Use and Limitation: No
- Ketone Monitoring Assessment
Patient monitoring ketone: No
- Hemoglobin A1c
Date: 01/18/24
A1C Percentage (%): 6.5
Medical History of Diabetes
Family Diabetes History: Mother, Father, Multiple family members
Previous Diabetes Education: No
Previous visit with Dietitian: No
Complications/Comorbidity/Specialist: Cataracts, Hypertension
Measures
- Anthropometrics
Height: 5 ft 6 in
Actual Weight: 83.007 kg
- Blood Pressure / Pulse
Blood pressure: 155/79
Pulse: 65
- Diabetes Management
Medical Management for Diabetes: Complete physical exam (07/04/2023), Dental exam (11/14/2023), Dilated eye exam (12/07/2023), Foot exam (12/05/2023)
Self-Care
- Tobacco Usage
Do you now, or have you ever smoked?: Never smoked
- Alcohol & Drugs Usage
Drinks Alcohol: No
Uses Recreational Drugs: No
- Meals & Dining
Meals & Dining: Patient skips meals: No, Food Intolerance / Allergy: No, Cultural / Moravian Dietary Needs: No
Primary Food Counselor Nurses' Association: Self
Primary Hatchery Employee: Self
Dining Out Frequency: Never
- Physical Activity
Physical Limitation: No
Patient participates in physical Activity: Yes
Activity Types: walking
Duration: 21-30 minutes
Frequency: 6-7x per week
Intensity: Easy
- Self Foot-Care
Foot Problems: None
Performs Self Foot-Exam: Yes
Frequency: Daily
- Patient-Self Assessment
Diabetes Knowledge: Fair
Feelings About Diabetes: Anger
General Health: Good
Importance of Health: Extremely
Stress Level: High
Diabetes Interferes With:: Family/social activities
Barriers to Diabetes Management: Nothing
Depression Survey Score: 3
- Diabetes Identification
Carries Diabetes Identification: No
Diabetes Identification Information Provided: No
Care Plan
- Education Needs
Patient Education Needs: Diabetes disease process, Chronic complications, Acute complications, Monitoring, Physical activity, Psychosocial Adjustment, Nutritional management, Goal setting & problem solving
Recommended Diabetes Training Program based on assessment: Outpatient Diabetes Education Program
- Plan of Care
Plan of Care:
Met with Gloria at the bedside in her room for registration of DSME, Gloria was on the way to the diabetes office for registration of classes when she sustained chest pain and ended up in the ER. Pt was recommended by her PCP due to recent Dx of
T2DM with an A1C of 6.5% that was noted on recent blood work. Patient states that she was started on Metformin 500mg BID but stopped taking it due to severe GI side effects.
Reports that she recently purchased a glucose meter OTC but does not know how to use. Will provide her with a Contour Next Ez meter on Monday before class. We reviewed the testing pattern and set a schedule for her to monitor fasting blood sugars 2
Pt was counseled with emphasis on the importance of Physical activity, need to adhere to a healthy life style including healthy eating, and monitoring blood glucose. Goals for physical activity were established; pt will increase her duration of
exercise to 45 minutes, 5 days a week.
--- NOTE | 2024-01-19 16:16 | PN.DIAED04 ---
Education Record
- Education Record
Class Attended: Other (Pre-registration for DSME Classes)
DSME Class Series Code: [id number]
Instructor: Nurse Practitioner (CINDI Duque)
Class Length (mins): 120
Pre-Program Knowledge: Needs review / Assistance
Pre-Test Score (%): 68
Goals
- Goal 1
Being Active: Exercise 30 minutes-5 times per week, Exercise more often
Goals To Be Evaluated: Exercise 30 mins-5x/week. Exercise more often
- Goal 2
Healthy Eating: Patient will be able to plan a meal
Goals To Be Evaluated: Be able to plan a meal
- Goal 3
Monitoring: Follow monitoring schedule
Goals To Be Evaluated: Follow monitoring times
--- NOTE | 2024-01-23 15:18 | PN.DE ---
Diabetes Education
- -
01/23/2024: Diabetes Education
Met with Gloria today in the office for glucose monitor instructions. Gloria recently started DSME classes, current A1C 6.5%. Provided with Contour Next Gen glucose meter, instructions with good return demonstration, result of 229 mg/dl 30 mins
after lunch were noted. Discussed testing pattern and expected results and information marked in the take home booklet. Discussed importance of ongoing lifes tyle changes and self care behavior changes .
Pt will need RX for test strips and lancets for Contour Next Gen glucose meter, testing once/day.
== END ==
LOC: DES 18:00
PROVIDERS: ATTENDING PHYSICIAN Internal Medicine Endocrinology, Diabetes & Metabolism
DX: E11.9 Type 2 diabetes mellitus without complications (principal)
CPT/HCPCS: 99078

== ENCOUNTER → 2024-01-29 18:00 | Outpatient (REF) | payer MEDICARE, SELFPAY | LOC: DES 18:00 | PROVIDERS: ATTENDING PHYSICIAN Internal Medicine Endocrinology, Diabetes & Metabolism | DX: E11.9 Type 2 diabetes mellitus without complications (principal) | CPT/HCPCS: 99078 ==

== ENCOUNTER → 2024-02-05 18:00 | Outpatient (REF) | payer MEDICARE, SELFPAY | LOC: DES 18:00 | PROVIDERS: ATTENDING PHYSICIAN Internal Medicine Endocrinology, Diabetes & Metabolism | DX: E11.9 Type 2 diabetes mellitus without complications (principal) | CPT/HCPCS: 99078 ==

== ENCOUNTER → 2024-02-12 08:05 | Outpatient (REF) | payer MEDICARE, SELFPAY ==
--- NOTE | 2024-02-16 08:33 | PN.DIAED04 ---
Education Record
- Education Record
Class Attended: Class 4
DSME Class Series Code: [id number]
Instructor: Nurse Practitioner (CINDI Duque)
Class Length (mins): 120
Post-Class 4 Test Score (%): 93
== END ==
LOC: DES 08:05
PROVIDERS: ATTENDING PHYSICIAN Internal Medicine Endocrinology, Diabetes & Metabolism
DX: E11.9 Type 2 diabetes mellitus without complications (principal)
CPT/HCPCS: 99078

== ENCOUNTER → 2024-02-19 12:39 | Outpatient (REF) | payer MEDICARE, SELFPAY | LOC: DES 12:39 | PROVIDERS: ATTENDING PHYSICIAN Internal Medicine Endocrinology, Diabetes & Metabolism | DX: E11.9 Type 2 diabetes mellitus without complications (principal) | CPT/HCPCS: 99078 ==

== ENCOUNTER → 2024-06-05 12:20 | Outpatient (REF) | payer MEDICARE, SELFPAY | LOC: WDC 12:20 | PROVIDERS: ATTENDING PHYSICIAN Family Medicine | DX: Z12.31 Encounter for screening mammogram for malignant neoplasm of breast (principal) | CPT/HCPCS: 77063; 77067 ==

== ENCOUNTER 2024-08-02 01:07 | Emergency (ER) | payer MEDICARE, SELFPAY ==
[2024-08-02 01:10] VITALS: BP 208/100
[2024-08-02 01:30] VITALS: BMI 28.1
[2024-08-02 01:43] VITALS: BP 178/78
[2024-08-02 01:52] LABS: Urine Albumin Negative (Neg - Trace); Urine Bilirubin Negative (Negative); Urine Character Clear (Clear); Urine Color Yellow; Urine Glucose Negative (Negative); Urine Ketone Negative (Negative); Urine Leukocyte Negative (Negative); Urine Nitrite Negative (Negative); Urine Occult Blood Negative (Negative); Urine Specific Gravity 1.005 (<1.030); Urine Urobilinogen Negative (Neg - 1+)
[2024-08-02 02:00] VITALS: BP 165/80
[2024-08-02 02:04] LABS: % Basophils 0.6 % (0-2); % Eosinophils 3.2 % (0-6); % Immature Granulocytes 0.2 % (0-0.5); % Lymphocytes 37.8 % (20.5-51.1); % Neutrophils 49.2 % (42.2-75.2); ALT (SGPT) 19 U/L (0-35); AST (SGOT) 21 U/L (14-36); Absolute Eosinophils 0.2 10^3/uL (0-0.7); Absolute Monocytes 0.5 10^3/uL (0.1-0.6); Absolute Neutrophils 2.6 10^3/uL (1.4-6.5); Albumin 4.1 g/dl (3.5-5.0); Alkaline Phosphatase 46 U/L (38-126); Blood Urea Nitrogen 21 mg/dl (7-17); Calcium 9.6 mg/dl (8.4-10.2); Carbon Dioxide 26 mmol/L (22-30); Chloride 107 mmol/L (98-107); Estimated Creatinine Clearance 63 ml/min; Glucose 170 mg/dl (70-99); Hematocrit 39.2 % (37.0-47.0); Hemoglobin 13.3 g/dL (12.0-16.0); Lipase 107 U/L (23-300); Mean Corp Hgb Conc. 33.9 g/dL (33.0-37.0); Mean Corpuscular Hgb 31.2 pg (27.0-31.0); Mean Platelet Volume 10.6 fL (7.4-10.4); Nucleated Red Blood Cells % 0 %; Platelet Count 189 10^3/uL (130-400); Potassium 3.6 mmol/L (3.5-5.1); Red Blood Cell Count 4.26 10^6/uL (4.20-5.40); Red Cell Dist. Width 12.7 % (11.5-14.5); Sodium 142 mmol/L (135-145); Total Bilirubin 0.8 mg/dl (0.2-1.3); Total Protein 6.5 g/dl (6.3-8.2); White Blood Cell Count 5.2 10^3/uL (4.8-10.8); eGFR > 60.00
--- NOTE | 2024-08-02 03:05 | ED.GENMED ---
History of Present Illness
General
Chief Complaint: Abdominal Pain
Source: patient
Time Seen by Provider: 08/02/24 02:03
History of Present Illness
History of Present Illness:
Pleasant 74-year-old female presents emergency department 3 days of right upper quadrant abdominal pain. She states that this pain is awakened her from sleep the last 3 nights. Patient reports that the pain is present only wall lying in bed.
During today she does not have recurrence of symptoms. Denies fever, chills but does report nausea without vomiting. She has been taking opkd-omd-gnhydcy Mylanta without relief. Patient did have a cholecystectomy. Denies chest pain or shortness
of breath.
Past History
Past History
ED Past Medical History: Arrthythmia (SVT), HTN, Other (PE) and Other (Ulcers, Depression, anxiety, Gastritis)
ED Past Surgical History: Appendectomy, Cardiac (Cardiac ablation), Cholecystectomy, Tonsilectomy and Other (Green field filter, ovarian cyst removed)
Social History
Tobacco: Non-smoker
Alcohol: None
Drug: None
Personal:
Living: with family
Employment: Disabled
Family History
Family History: Hypertension; Negative CAD
Review of Systems
Review of Systems
Allergies reviewed?: Yes
All Other Systems: ROS reviewed and negative except as documented in HPI and ROS
Constitutional: Reports no symptoms
EENT: Reports no symptoms
Respiratory: Reports no symptoms
Cardiac: Reports no symptoms
ABD/GI: Reports abdominal pain and nausea; Denies vomiting, diarrhea, constipated, bloody stools or black stools
: Reports no symptoms
Musculoskeletal: Reports no symptoms
Skin: Reports no symptoms
Neurological: Reports no symptoms
Endocrine: Reports no symptoms
Hematologic/Lymphatic: Reports no symptoms
Psychiatric: Reports no symptoms
Phy Exam
General Physical Exam
General Presentation: well appearing and no apparent distress
General Skin: warm and dry
General Habitus: normal
General Mental: alert
General Hydration: appears well hydrated
ENT Exam
ENT Exam: EOMI, pharynx normal, neck supple and normocephalic
Eye Exam
Eye Exam: PERRL, cornea clear and conjunctiva normal
Cardiovascular Exam
Cardiovascular Exam: regular rate/rhythm, no edema, no murmur and normal peripheral pulses
Pulmonary Exam
Pulmonary Exam: lungs clear, no respiratory distress, no rales, no crackles, no rhonchi, no stridor, no wheezing and no cough
Gastrointestinal Exam
Gastrointestinal Exam: normal bowel sounds, non tender, soft, no organomegaly, no pulsatile mass and non distended
Palpation: right upper quadrant: Mild tenderness
Neurological Exam
Neurological Exam: alert, oriented x3, no motor deficits and speech normal
Musculoskeletal Exam
Musculoskeletal Exam: full ROM and no edema
Skin Exam
Skin Exam: normal color, warm/dry, no rash and no petechia
Psychiatric Exam
Psychiatric Exam: normal mood/affect
Course
Orders/Labs/Results
Orders:
Orders
08/02/24 01:18
IV Insert/Care/Rem.- Treatment PRN
08/02/24 01:36
Complete Blood Count/With Diff Urgent
Comprehensive Metabolic Panel Urgent
Lipase Urgent
Urinalysis Reflex To Culture Urgent
Date Specimen was Collected: 08/02/24
Time Specimen was Collected: 01:18
08/02/24 02:03
US Abdomen Complete/Upper Urgent
Comment:
Reason For Exam: ruq abd pain
08/02/24 03:09
CT Abd/pelvis W Iv Cont Urgent
Comment:
Reason For Exam: gen abd pain
08/02/24 04:31
Electrocardiogram (*1) Urgent
Reason for Study: Abdominal Pain
EKG- Treatment ONCE
Abnormal Lab Results
08/02/24
01:36
MCH 31.2 H pg
(27.0-31.0)
MPV 10.6 H fL
(7.4-10.4)
BUN 21 H mg/dl
(7-17)
Glucose 170 H mg/dl
(70-99)
08/02/24 01:36
08/02/24 01:36
Vital Signs
Initial and Last Documented VS:
Initial Vital Signs
Temp Pulse Resp BP Pulse Ox
98.5 F 71 16 208/100 98
08/02/24 01:10 08/02/24 01:10 08/02/24 01:10 08/02/24 01:10 08/02/24 01:10
Last Documented Vital Signs
Temp Pulse Resp BP Pulse Ox
98.3 F 65 20 170/78 96
08/02/24 03:58 08/02/24 03:58 08/02/24 03:58 08/02/24 03:58 08/02/24 03:58
*Radiology
Radiology exam reviewed: radiology read reviewed (Absent gallbladder, otherwise normal)
*EKG
Interpreted by ED Provider?: Yes
EKG Intrepretation Date: 08/02/24
Interpretation: normal
Rate: normal
[place]: normal axis
Interval: normal interval
QRS Pattern: normal QRS
Ischemia: no ischemia
*Critical Care Note
Total Time (30-74mins, 75-104mins- exclusive of procedures): Not Applicable
Update Note
Update Note:
NAME: PAVAN HANNA
DATE OF EXAM: 08/02/2024
Patient No: [id number]
Physician: VERNON
Date of : 1950
Past Medical History (entered by Technologist):
Reason For Exam (entered by Technologist):
Other Notes (entered by Technologist): Pt having RUQ abdominal pain for past 3 nights. States it goes away during the day but returns at night. Nausea, no vomiting. Took mylanta without relief. Hx of cholecystectomy.
Prior sent
Additional Information (per [facility]iologist):
CT abdomen and pelvis with IV contrast
IMPRESSION:
Status post cholecystectomy. No bowel obstruction, obstructing renal stone, or pancreatitis.
Lung bases clear. IVC filter. Spleen and adrenal glands are normal. Abdominal aorta is of normal caliber. Appendix not visualized.
Finalized at 4:20 AM EST
Patient states that pain has resolved. No acute distress at this time.
ED Attending Note
-
Portions of this chart may have been created with voice recognition software.� Occasional wrong word or��sound alike� substitutions may have occurred due to the inherent limitations of voice recognition software.
Discharge Plan
Departure
Patient Disposition: Home (Routine Discharge)
Date of Disposition: 08/02/24
Time of Disposition: 04:30
Patient with high blood pressure during this ER visit?: Yes
Condition: Good
Discharge Problem:
Abdominal pain
Instructions: Abdominal Pain, BLOOD PRESSURE
Prescriptions:
No Action
Flintstones Complete Tablet,Chewable
1 tab PO DAILY Qty: 0
Patient Comments:
chewable multivitamin
carvedilol 6.25 MG tablet
12.5 mg PO BID
(DME) Contour Next Test Strips Strip
Qty: 30 0RF
Rx Instructions:
Pt Testing 1 times a day
(DME) lancets [Microlet Lancet] Misc
Qty: 30 0RF
Rx Instructions:
Pt testing 1 times a day
lorazepam 0.5 mg Tablet
0.5 mg PO DAILYPRN PRN (Reason: anxiety/claustrophobia)
alum-mag hydroxide-simeth 200-200-20 mg/5 mL Suspension
5 ml PO DAILYPRN PRN (Reason: heartburn)
TheraTears 0.25 % [place]
1 drp BOTH EYES BID
sodium chloride 0.9 % Aerosol,[place]
2 spray INTRANASAL DAILYPRN PRN (Reason: conjestion)
hydrochlorothiazide 12.5 mg Tablet
12.5 mg PO DAILY
aspirin 81 mg Tablet,Chewable
81 mg PO DAILY
Referrals:
[facility] [Provider Group] - Next open appointment
Chrystal Gagnon MD [Family Provider] -
Activity Restrictions/Additional Instructions:
Thank You for choosing [facility].
It was a pleasure meeting you and taking part in your care. We hope for your continued healing and wellness.
Please read discharge instructions in their entirety. However, they are for general education and may not describe your exact diagnosis at discharge. Information on your ER visit and medical conditions were discussed with you along with appropriate
follow up information...
If indicated, please take your medications as instructed and indicated on discharge paperwork.
Please schedule a follow up appointment as directed. Call to schedule an appointment
Please return to the emergency department with ANY change in, persisting, or worsening of symptoms. If any of your symptoms do not improve, or persist, or become more severe within 6-12 hours, please return to the emergency department for further
care.
Please return to the emergency department if you develop a headache, neck pain/stiffness, fever greater than 100.4F, chest pain, shortness of breath, persistent nausea, vomiting, slurred speech, difficulty walking, numbness/tingling, weakness, signs
of infection or any other symptoms that are worrisome to you.
If you have any questions or concerns please do not hesitate to call the Hospital at or E-mail me directly at [email or web address]
Interventions
Interventions:
*Risk Screen - Suicide Last Done: 08/02/24 01:10
*General Assessment Last Done: 08/02/24 01:30
*Neglect/Abuse Screening Last Done: 08/02/24 01:10
*ED- Fall Risk Assessment Last Done: 08/02/24 01:10
*ED COVID-19 Vaccine History Last Done: 08/02/24 01:10
CJ-Tqkfni-Oagidrjpfy Assessment Last Done: 08/02/24 01:30
Discharge Date and Time
Print Language: NIGERIAN
[2024-08-02 03:55] VITALS: BP 170/78
[2024-08-02 03:58] VITALS: BP 170/78
== END 2024-08-02 05:20 | disposition home or self-care (01) ==
LOC: EMR 01:07
PROVIDERS: EMERGENCY PHYSICIAN Student in an Organized Health Care Education/Training Program; FAMILY PHYSICIAN Family Medicine
DX: R10.11 Right upper quadrant pain (principal); I47.10 Supraventricular tachycardia, unspecified; I10 Essential (primary) hypertension; F41.9 Anxiety disorder, unspecified; Z82.49 Family history of ischemic heart disease and other diseases of the circulatory system; Z87.19 Personal history of other diseases of the digestive system; Z90.49 Acquired absence of other specified parts of digestive tract
CPT/HCPCS: 99284; 74177; 76700; 80053; 81003; 83690; 85025; 93005; Q9967

== ENCOUNTER 2024-08-28 17:34 | Emergency (ER) | payer MEDICARE, SELFPAY ==
[2024-08-28 17:38] VITALS: BP 166/86; BMI 28.1
[2024-08-28 17:41] VITALS: BP 166/86
[2024-08-28 18:00] VITALS: BP 172/86
[2024-08-28 18:06] LABS: % Basophils 0.6 % (0-2); % Eosinophils 5.3 % (0-6); % Immature Granulocytes 0.2 % (0-0.5); % Lymphocytes 28.8 % (20.5-51.1); % Monocytes 7.6 % (1.7-9.3); % Neutrophils 57.5 % (42.2-75.2); Absolute Eosinophils 0.3 10^3/uL (0-0.7); Absolute Lymphocytes 1.4 10^3/uL (1.2-3.4); Absolute Monocytes 0.4 10^3/uL (0.1-0.6); Absolute Neutrophils 2.8 10^3/uL (1.4-6.5); Hematocrit 40.1 % (37.0-47.0); Hemoglobin 13.8 g/dL (12.0-16.0); Mean Corp Hgb Conc. 34.4 g/dL (33.0-37.0); Mean Corpuscular Hgb 31.8 pg (27.0-31.0); Mean Corpuscular Volume 92.4 fL (81.0-99.0); Mean Platelet Volume 10.9 fL (7.4-10.4); Nucleated Red Blood Cells % 0 %; Platelet Count 193 10^3/uL (130-400); Red Blood Cell Count 4.34 10^6/uL (4.20-5.40); Red Cell Dist. Width 12.1 % (11.5-14.5); White Blood Cell Count 4.9 10^3/uL (4.8-10.8)
[2024-08-28 18:15] LABS: INR 0.97; PT 13.4 Sec (11.4-14.6)
[2024-08-28 18:20] LABS: ALT (SGPT) 35 U/L (0-35); AST (SGOT) 33 U/L (14-36); Albumin 4.8 g/dl (3.5-5.0); Alkaline Phosphatase 63 U/L (38-126); Blood Urea Nitrogen 20 mg/dl (7-17); Calcium 9.6 mg/dl (8.4-10.2); Carbon Dioxide 30 mmol/L (22-30); Chloride 103 mmol/L (98-107); Estimated Creatinine Clearance 73 ml/min; Glucose 178 mg/dl (70-99); Potassium 3.8 mmol/L (3.5-5.1); Sodium 140 mmol/L (135-145); Total Bilirubin 0.8 mg/dl (0.2-1.3); Total Protein 7.4 g/dl (6.3-8.2); eGFR > 60.00
[2024-08-28 18:39] LABS: Troponin I < 0.012 ng/ml
--- NOTE | 2024-08-28 18:48 | ED.GENMED ---
History of Present Illness
General
Chief Complaint: Chest Pain
Source: patient
Exam Limitations: none
Time Seen by Provider: 08/28/24 17:43
Nursing documentation reviewed up to this point in time: agreed with
History of Present Illness
History of Present Illness:
74-year-old female with history of TIA on aspirin, HTN, GERD, anxiety/depression, hypothyroid, PE with Niall filter, presents stating 'I felt like I was going to pass out.'
She has been from her since January,
At 4:30 PM, her and son came to her home to take her 's close out of the house. She was sitting in her car across the street watching them when she suddenly developed left-sided chest pain 'like something was sitting on my chest.'
She states she felt a little nausea and states 'I was talking to myself trying to calm myself and called 911.'
She was given 324 mg aspirin and 2 sublingual nitro glycerin en route and states she feels 'a little better.' She is no longer nauseous, she has a dull ache on the left side of her face, chest pain went from 7/10 to 6/10
She saw her PCP Dr. Gagnon 2 weeks ago for follow-up after being discharged from [facility] for possible stroke which she states she had a negative MRI.
She admits to being depressed, she sees a therapist weekly, they have been discussing antidepressants but she is so sensitive to medications that she has not been put on any yet.
She admits suicidal ideation.
She is expressing concern that she lives alone and 'I have no help, I need somebody to help me.'
Past History
Past History
ED Past Medical History: Arrthythmia (SVT), HTN, Other (PE) and Other (Ulcers, Depression, anxiety, Gastritis)
ED Past Surgical History: Appendectomy, Cardiac (Cardiac ablation), Cholecystectomy, Tonsilectomy and Other (Green field filter, ovarian cyst removed)
Social History
Tobacco: Non-smoker
Alcohol: None
Drug: None
Personal:
Living: with family
Employment: Disabled
Family History
Family History: Hypertension; Negative CAD
Review of Systems
Review of Systems
Allergies reviewed?: Yes
All Other Systems: ROS reviewed and negative except as documented in HPI and ROS
Cardiac: Reports chest pain
Psychiatric: Reports depression
Phy Exam
Physical Exam
Physical Exam:
GENERAL: No acute distress. A&Ox3.
CONSTITUTIONAL: Afebrile.
EYES: clear, conjunctivae normal
ENMT: moist mucus membranes, Pharynx nl
RESPIRATORY: Regular respirations, nonlabored, lungs clear.
CARDIOVASCULAR: Regular rate and rhythm, no murmurs, no rubs.
GI: Soft, nontender, normal BS
MUSCULOSKELETAL: Moves with ease. Well perfused.
SKIN: Warm, dry, normal
PSYCH: Depressed mood and affect. Well kept, interactive and appropriate
NEUROLOGIC: Awake, alert and oriented. Speech clear. Face is symmetrical. Cranial nerves II through XII intact. Strength equal throughout. No focal neurological deficits
Scores
Heart Score for Chest Pain Patients
STEMI patient?: Not applicable
Course
Orders/Labs/Results
Orders:
Orders
08/28/24 17:36
Electrocardiogram (*1) Urgent
Reason for Study: Chest Pain
Cardiac Monitoring- Treatment ONCE
EKG- Treatment ONCE
IV Insert/Care/Rem.- Treatment PRN
08/28/24 17:52
Complete Blood Count/With Diff Urgent
Comprehensive Metabolic Panel Urgent
Magnesium Urgent
Prothrombin Time Urgent
Troponin I Urgent
08/28/24 18:51
Add On- LAB Urgent
Tests Added?: MAGNESIUM
Abnormal Lab Results
08/28/24
17:52
MCH 31.8 H pg
(27.0-31.0)
MPV 10.9 H fL
(7.4-10.4)
BUN 20 H mg/dl
(7-17)
Glucose 178 H mg/dl
(70-99)
08/28/24 17:52
08/28/24 17:52
Vital Signs
Initial and Last Documented VS:
Initial Vital Signs
Temp Pulse Resp BP Pulse Ox
98.3 F 71 18 166/86 99
08/28/24 17:38 08/28/24 17:38 08/28/24 17:38 08/28/24 17:38 08/28/24 17:38
Last Documented Vital Signs
Temp Pulse Resp BP Pulse Ox
98.3 F 62 17 161/72 98
08/28/24 17:38 08/28/24 18:37 08/28/24 18:37 08/28/24 20:28 08/28/24 18:37
MDM/Problems Addressed
Differential Diagnosis Includes:
Depression, panic attack/anxiety, TN
MDM/Problems Addressed:
74-year-old female with history of TIA on aspirin, HTN, GERD, anxiety/depression, hypothyroid, PE with Niall filter, presents stating 'I felt like I was going to pass out.'
She has been from her since January,
At 4:30 PM, her and son came to her home to take her 's close out of the house. She was sitting in her car across the street watching them when she suddenly developed left-sided chest pain 'like something was sitting on my chest.'
She states she felt a little nausea and states 'I was talking to myself trying to calm myself and called 911.'
She was given 324 mg aspirin and 2 sublingual nitro glycerin en route and states she feels 'a little better.' She is no longer nauseous, she has a dull ache on the left side of her face, chest pain went from 7/10 to 6/10
She saw her PCP Dr. Gagnon 2 weeks ago for follow-up after being discharged from [facility] for possible stroke which she states she had a negative MRI.
She admits to being depressed, she sees a therapist weekly, they have been discussing antidepressants but she is so sensitive to medications that she has not been put on any yet.
She denies suicidal ideation. Declines when Crisis eval offered
She is expressing concern that she lives alone and 'I have no help, I need somebody to help me.' She is lonely
EKG: NSR
8:00 PM:
CBC normal
CMP with no clinically significant abnormality
Troponin normal
Pt reassured
*EKG
EKG Intrepretation Date: 08/28/24
Interpretation: normal
Heart Rate: 71
Rate: normal
Rhythm: sinus
[place]: normal axis
Interval: normal interval
QRS Pattern: normal QRS
Ischemia: no ischemia
*Critical Care Note
Total Time (30-74mins, 75-104mins- exclusive of procedures): Not Applicable
ED Attending Note
-
Portions of this chart may have been created with voice recognition software.� Occasional wrong word or��sound alike� substitutions may have occurred due to the inherent limitations of voice recognition software.
Discharge Plan
Departure
Patient Disposition: Home (Routine Discharge)
Date of Disposition: 08/28/24
Time of Disposition: 20:19
Patient with high blood pressure during this ER visit?: No
Condition: Good
Discharge Problem:
Atypical chest pain, Depression
Instructions: Depression in adults, Chest Pain That Is Not Caused by the Heart (DC)
Prescriptions:
No Action
Flintstones Complete Tablet,Chewable
1 tab PO DAILY Qty: 0
Patient Comments:
chewable multivitamin
carvedilol 6.25 MG tablet
12.5 mg PO BID
lorazepam 0.5 mg Tablet
0.5 mg PO DAILYPRN PRN (Reason: anxiety/claustrophobia)
hydrochlorothiazide 12.5 mg Tablet
25 mg PO DAILY
aspirin 81 mg Tablet,Chewable
81 mg PO DAILY
atorvastatin 10 mg Tablet
10 mg PO HS
Referrals:
Chrystal Gagnon MD [Family Provider] - As needed
Activity Restrictions/Additional Instructions:
As we discussed, nothing worrisome in your workup here tonight. Specifically no sign of a heart attack.
Continue your visits with your therapist.
Interventions
Interventions:
*Risk Screen - Suicide Last Done: 08/28/24 17:38
*General Assessment Last Done: 08/28/24 17:38
*Neglect/Abuse Screening Last Done: 08/28/24 17:38
*ED COVID-19 Vaccine History Last Done: 08/28/24 17:38
*Nursing Disposition Last Done: 08/28/24 21:46
ED- Cardiac Assessment Last Done: 08/28/24 17:57
Discharge Date and Time
Discharge Date/Time: 08/28/24 21:47
Print Language: BAHAMIAN
[2024-08-28 19:26] LABS: Magnesium 2.1 mg/dl (1.6-2.3)
[2024-08-28 20:28] VITALS: BP 161/72
== END 2024-08-28 21:47 | disposition home or self-care (01) ==
LOC: EMR 17:34
PROVIDERS: Emergency Medicine; EMERGENCY PHYSICIAN Emergency Medicine; FAMILY PHYSICIAN Family Medicine; REFERRING PHYSICIAN Internal Medicine Cardiovascular Disease
DX: R55 Syncope and collapse (principal); R07.89 Other chest pain; R45.851 Suicidal ideations; R11.0 Nausea; F32.A Depression, unspecified; I10 Essential (primary) hypertension; K21.9 Gastro-esophageal reflux disease without esophagitis; F41.9 Anxiety disorder, unspecified; E03.9 Hypothyroidism, unspecified; I47.10 Supraventricular tachycardia, unspecified; M79.7 Fibromyalgia; M19.90 Unspecified osteoarthritis, unspecified site; E11.9 Type 2 diabetes mellitus without complications; E05.00 Thyrotoxicosis with diffuse goiter without thyrotoxic crisis or storm; D50.9 Iron deficiency anemia, unspecified; G47.30 Sleep apnea, unspecified; K58.9 Irritable bowel syndrome, unspecified; Z63.5 Disruption of family by separation and divorce; Z60.2 Problems related to living alone; Z79.82 Long term (current) use of aspirin; Z90.49 Acquired absence of other specified parts of digestive tract; Z86.711 Personal history of pulmonary embolism; Z86.73 Personal history of transient ischemic attack (TIA), and cerebral infarction without residual deficits; Z87.440 Personal history of urinary (tract) infections; Z88.1 Allergy status to other antibiotic agents; Z88.3 Allergy status to other anti-infective agents; Z88.0 Allergy status to penicillin; Z88.2 Allergy status to sulfonamides; Z88.8 Allergy status to other drugs, medicaments and biological substances
CPT/HCPCS: 99283; 80053; 83735; 84484; 85025; 85610; 93005

== ENCOUNTER → 2024-09-16 11:55 | Outpatient (REF) | payer MEDICARE, SELFPAY | LOC: PAVMRI 11:55 | PROVIDERS: ATTENDING PHYSICIAN Family Medicine | DX: K86.2 Cyst of pancreas (principal) | CPT/HCPCS: 74183; A9575 ==

== ENCOUNTER → 2025-01-10 08:54 | Outpatient (REF) | payer MEDICARE, SELFPAY ==
[2025-01-10 11:13] LABS: Hematocrit 40.0 % (37.0-47.0); Hemoglobin 13.5 g/dL (12.0-16.0); Mean Corp Hgb Conc. 33.8 g/dL (33.0-37.0); Mean Corpuscular Volume 93.7 fL (81.0-99.0); Platelet Count 172 10^3/uL (130-400); Red Cell Dist. Width 12.5 % (11.5-14.5)
[2025-01-10 12:05] LABS: Blood Urea Nitrogen 20 mg/dl (7-17); Calcium 9.4 mg/dl (8.4-10.2); Carbon Dioxide 27 mmol/L (22-30); Chloride 104 mmol/L (98-107); Glucose 138 mg/dl (70-99); Potassium 4.1 mmol/L (3.5-5.1); Sodium 138 mmol/L (135-145); eGFR > 60.00
== END ==
LOC: SDSPAT 08:54
PROVIDERS: ATTENDING PHYSICIAN Obstetrics & Gynecology; FAMILY PHYSICIAN Family Medicine
DX: Z01.818 Encounter for other preprocedural examination (principal)
CPT/HCPCS: 36415; 80048; 85027; 86850; 86900; 86901

== ENCOUNTER 2025-01-28 06:23 | Day surgery (SDC) | payer MEDICARE, SELFPAY ==
--- NOTE | 2025-01-21 15:39 | CM ---
Patient was referred to CM by PAT RN. Patient stated that she will have no help post operatively. She would be agreeable to have VN come to the house. She did discuss SNF. CM advised that patient would not qualify for SNF.
[facility].
--- NOTE | 2025-01-21 15:48 | VNURNOTE ---
Rec'ed updates from surgical CM that pt is very nervous about post op recovery and managing at home. Home Health Liaison spoke with patient and discussed [facility] nurse/therapy, visits, schedule and homebound status. Patient is agreeable and
understands that visits at home will be 2-3 x per week to assess and teach medical management. Patient is aware that [facility] will contact them for start of care in 1-2 days after discharge from . Patient wanted someone to be with her every day
for the first week post-op. Explained that [facility] services are intermittent, short term, skilled. Offered to email pt a list of caregiver agencies. Patient not interested since they are typically private pay.
[facility] referral completed in [facility].
[2025-01-28] VITALS (23 sets, daily range): BP systolic 142–221; BP diastolic 68–105; BMI 27.1
[2025-01-28] MEDS: NORMOSOL-R/PLASMALYTE-A 1000 IV ×2 (08:59→19:36)
[2025-01-28] MEDS: HEPARIN 5000 UNITS SC (10:29)
[2025-01-28] MEDS: DILAUDID 0.5 MG IV ×5 (14:15→16:35)
[2025-01-28] MEDS: APRESOLINE 5 MG IV ×2 (15:53→16:35)
[2025-01-28] MEDS: ZOFRAN 4 MG IV (16:27)
[2025-01-28] MEDS: TORADOL 15 MG IV (19:37)
[2025-01-28] MEDS: LOVENOX 40 MG SC (20:55)
[2025-01-28] MEDS: COREG 12.5 MG PO (20:55)
[2025-01-28] MEDS: COLACE PO ×2 (20:55)
[2025-01-29] MEDS: TORADOL 15 MG IV ×3 (00:10→12:29)
--- NOTE | 2025-01-29 02:30 | DOWNTIME ---
There was a [employer] Worker Downtime on 01/29/2025 from 0100 to 01/29/2025 at 0215. Downtime documentation of patient's care, including medication administrations, has been reconciled in the electronic record per guidelines. Refer to the
patient's paper chart under the miscellaneous tab to see printed paper medication records and downtime forms.
[2025-01-29 03:00] VITALS: BP 152/77
[2025-01-29 03:13] LABS: Glucose - Point of Care 241 mg/dl (70-99)
--- NOTE | 2025-01-29 04:00 | PTCARENOTE ---
Pt c/o pain at L IV site. Fluids paused. VAT team notified. Pt assessed. New IV placed in R forearm, L IV removed.
[2025-01-29] MEDS: NORMOSOL-R/PLASMALYTE-A 1000 IV (04:12)
[2025-01-29 06:01] LABS: Hematocrit 37.5 % (37.0-47.0); Hemoglobin 12.1 g/dL (12.0-16.0); Mean Corp Hgb Conc. 32.3 g/dL (33.0-37.0); Mean Corpuscular Volume 97.4 fL (81.0-99.0); Platelet Count 165 10^3/uL (130-400); Red Cell Dist. Width 13.0 % (11.5-14.5)
[2025-01-29 06:24] LABS: Blood Urea Nitrogen 15 mg/dl (7-17); Carbon Dioxide 28 mmol/L (22-30); Chloride 100 mmol/L (98-107); Estimated Creatinine Clearance 64 ml/min; Potassium 3.8 mmol/L (3.5-5.1); Sodium 134 mmol/L (135-145)
[2025-01-29 07:00] VITALS: BP 167/79
--- NOTE | 2025-01-29 07:39 | W.PN.GYN ---
Today's Communication / Plan
-
voiding trial, followup case management and PT evaluation for discharge planning
Physician Note
-
Patient is a 74yoF PMH DM2, HTN, anxiety, POP now POD1 s/p robot assisted total hysterectomy, BSO and uterosacral ligament suspension. She was evaluated on AM rounds. Patient�s pain is controlled. She had mild nausea overnight but was able to
tolerate a sandwich and water yesterday evening. This morning she is tolerating liquids and started breakfast. She ambulated to the bathroom with assistance and felt a little unsteady when walking needing help from the nurse. She voided without
difficulty and notes some spotting in her pad. She also notes feeling a bit bloated this morning. She denies nausea, vomiting, chest pain, SOB.
Patient is anxious that her glucose is elevated since at home it is normally controlled with diet per her flagsetter. Her most recent A1c 6.6.
Of note patient is apprehensive about discharge home. She normally lives at home by herself and has 13 steps to climb up into her house. Her family lives far away and she requests staying at a rehab facility for a few days until she recovers.
O :
GA: Well appearing female in NAD
HEENT: Normocephalic, EOMI
Abd: soft, mild distension, sutures intact with dermabond, incisional tenderness
: Minimal vaginal spotting noted in pad
Ext: no lower extremity edema
Vital Signs
Temp Pulse Resp BP Pulse Ox
98.1 F 88 16 152/77 99
01/29/25 03:00 01/29/25 03:00 01/29/25 03:00 01/29/25 03:00 01/29/25 03:00
Intake and Output
01/28/25 01/29/25 01/30/25
06:59 06:59 06:59
Intake Total 480 / 480
Output Total 1050 / 1050
Balance -570 / -570
Intake:
Oral fluids 480 / 480
Output:
Urine, Jean 1050 / 1050
Laboratory Results
01/29/25 05:34
01/29/25 05:34
POC glucose: 241
Plan
- Continue to monitor vitals
- Resume home medications
- Monitor vaginal incision bleeding
- Ibuprofen/Tylenol prn and vaginal ice packs for mild/moderate pain and dilaudid prn for severe pain
- Continue SCDs and Lovenox for DVT prophylaxis
- May discontinue IV fluids
- Regular diet
- Out of bed with assistance and encourage maximizing time out of bed
- Followup trial of void
- Monitor glucose levels; consider sliding scale if they remain increased.
- Consult diabetic education
- Consult PT for evaluation
- Consult case management for discharge planning
[2025-01-29] MEDS: COLACE 100 MG PO (08:52)
[2025-01-29] MEDS: COREG 12.5 MG PO (08:55)
--- NOTE | 2025-01-29 11:37 | PTCARENOTE ---
01/28/2025 DIABETES EDUCATION CONSULT
Met with Gloria, she is inpatient for a hysterectomy. She is concerned because her glucose while inpatient was 240 mg/dL. her last HbA1c was 6.6%, does not take medications for DM. I explained that the stress of having surgery, pain, lack of
sleep and emotional stress can increase blood sugar values. She has a glucometer at home, I asked her to check her glucose at home once a day, keep a log and review with her PCP. Per patient request, I spoke to nurse and requested Accu-Chek and
discuss results with hospitalist if needed.
Gloria attend [facility] diabetes education class in the past, she will outreach with any further questions or concerns.
--- NOTE | 2025-01-29 11:45 | CM ---
Alert awake oriented patient who lives alone in a townhouse with 1 steps to enter and 13 steps to bed/bath room. Pt is independent in driving and ADLs.Pt initially said she wanted SNF. Explained pt is outpatient status and she would not qualify for
SNF.Pt states understanding.Offered private pay after school caregiver list. Pt said she can not afford. Offered VN she requested [facility] . [facility] aware of referral.Pt said she is trying to find a ride home.Will contact CM if ride not found.
No adaptive devices.
VN hx . No SNF hx
Pharmacy [facility]
PCP DR Gagnon
PLAN Home with [facility]
[2025-01-29 12:36] VITALS: BP 145/62; BP 154/72; PULSE 75
[2025-01-29 12:56] LABS: Glucose - Point of Care 166 mg/dl (70-99)
[2025-01-29 15:00] VITALS: BP 163/73
--- NOTE | 2025-01-29 16:32 | PTCARENOTE ---
pt tolerating diet, minimal pain in lower abd, independent with walker, gait steady, urinating without difficulty, vss, for discharge to home today, will continue to monitor.
== END 2025-01-29 17:18 | disposition home or self-care (01) ==
LOC: SDS 06:23
PROVIDERS: ATTENDING PHYSICIAN Obstetrics & Gynecology; FAMILY PHYSICIAN Family Medicine
DX: N81.10 Cystocele, unspecified (principal); N84.0 Polyp of corpus uteri; D25.9 Leiomyoma of uterus, unspecified; N83.8 Other noninflammatory disorders of ovary, fallopian tube and broad ligament
CPT/HCPCS: 58571; 80051; 82565; 82962; 84520; 85027; 86900; 86901; 88305; 93005; 97116; 97162; J1580